=== PATIENT | female | born 1950 | race Caucasian/White ===

== ENCOUNTER 2016-12-27 07:28 | Day surgery (SDC) | payer OTHER ==
[2016-12-27] MEDS ORDERED: D5 LR 1000 ML 1,000 ML IV ONE (07:41)
[2016-12-27] MEDS ORDERED: DIPRIVAN VIAL 20 ML ONE (09:31)
[2016-12-27] MEDS ORDERED: DIPRIVAN VIAL 10 ML ONE (09:52)
[2016-12-27 10:40] VITALS: BP 116/69
== END 2016-12-27 10:22 | disposition home or self-care (01) ==
LOC: SURG1 07:28
PROVIDERS: ATTEND Internal Medicine Gastroenterology
PROC: 0DBE8ZX Excision of Large Intestine, Via Natural or Artificial Opening Endoscopic, Diagnostic (ICD-10-PCS; principal; 2016-12-27 09:30)
PROC: 0DJD8ZZ Inspection of Lower Intestinal Tract, Via Natural or Artificial Opening Endoscopic (ICD-10-PCS; principal; 2016-12-27 09:30)
DX: Z12.11 Encounter for screening for malignant neoplasm of colon (principal); Z80.0 Family history of malignant neoplasm of digestive organs; K57.30 Diverticulosis of large intestine without perforation or abscess without bleeding; K64.0 First degree hemorrhoids; R19.4 Change in bowel habit
CPT/HCPCS: A4217; J3490; J7120